=== PATIENT | male | born 1990 | race Hispanic/Latino ===

== ENCOUNTER 2020-01-11 21:14 | Emergency (ER) | payer SELFPAY ==
--- NOTE | 2020-01-11 21:59 | RAD ---
EXAM: 3 views of the right wrist HISTORY: Wrist pain COMPARISON: None FINDINGS: 3 views of the right wrist shows an intra-articular comminuted fracture of the distal radiu s. There is an associated ulnar styloid process fracture. No dislocation is appreciated. An overlying splint obscures fine bony and soft tissue detail. Moderate diffuse soft tissue swelling is seen. No degenerative changes are present. IMPRESSION: Distal radius and associated ulnar styloid process fractures
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
== END 2020-01-11 23:20 | disposition home or self-care (01) ==
LOC: ERS 21:14
DX: S52.571A Other intraarticular fracture of lower end of right radius, initial encounter for closed fracture (principal); S52.611A Displaced fracture of right ulna styloid process, initial encounter for closed fracture; S40.211A Abrasion of right shoulder, initial encounter; V86.59XA Driver of other special all-terrain or other off-road motor vehicle injured in nontraffic accident, initial encounter

== ENCOUNTER 2020-04-05 07:29 | Outpatient (CLI) | payer OTHER ==
[2020-04-05 17:29] LABS: #Basophils 0.1 10x3/uL (0.0-0.2); #Eosinphils 0.2 10x3/uL (0.0-0.5); #Monocytes 0.7 10x3/uL (0.0-1.1); #Neutrophils 5.5 10x3/uL (1.5-8.4); %Basophils 0.8 % (0.0-2.0); %Eosinophils 2.1 % (0.0-6.0); %Lymphocytes 37.5 % (18.0-47.0); %Monocytes 6.5 % (0.0-10.0); %Neutrophils 52.7 % (40.0-75.0); Hemoglobin 15.7 g/dL (14.0-18.0); Mean Corpuscular Hemoglobin 30.9 PG (27.0-33.0); Mean Corpuscular Volume 88.4 fl (80.0-100.0); Mean Platelet Volume 9.3 fl (7.4-10.4); Platelet Count 320 10x3/uL (130-400); RBC Distribution Width 11.6 % (11.5-14.5); Red Blood Cell (RBC) Count 5.08 10x6/uL (4.40-5.80); White Blood Cell (WBC) Count 10.3 10x3/uL (4.5-11.0)
[2020-04-06 13:01] LABS: SARS-CoV-2 MS2 Positive; SARS-CoV-2 N Gene Negative; SARS-CoV-2 S Gene Negative; SARS-CoV-2 by NAA Not Detected (NotDetected); SARS-CoV-2 orf1ab Negative
== END 2020-04-05 07:30 | disposition home or self-care (01) ==
LOC: LABBT 07:29
PROVIDERS: ATTEND Orthopaedic Surgery Hand Surgery
DX: Z01.812 Encounter for preprocedural laboratory examination (principal); Z20.828 Contact with and (suspected) exposure to other viral communicable diseases; S52.611K Displaced fracture of right ulna styloid process, subsequent encounter for closed fracture with nonunion
CPT/HCPCS: 85025; 87635; U0003

== ENCOUNTER 2020-04-08 08:08 | Day surgery (SDC) | payer OTHER ==
[2020-04-07 09:46] VITALS: BMI 22.1
[2020-04-08] MEDS ORDERED: Sodium Chloride 0.9% 10 ML ONE (09:28)
[2020-04-08] MEDS ORDERED: Bacitracin Zinc Ointment 30 gm TUBE ONE (09:28)
[2020-04-08] MEDS ORDERED: EPINEPHrine 1 MG/ML AMP ONE (09:28)
[2020-04-08] MEDS ORDERED: HYDROmorphone 0.5 MG/0.5 ML SYRINGE ONE (10:01)
[2020-04-08] MEDS ORDERED: Fentanyl 100 MCG/2 ML VIAL ONE ×2 (10:01→17:39)
[2020-04-08] MEDS ORDERED: Dexmedetomidine 200 MCG/2 ML VIAL ONE (10:02)
[2020-04-08] MEDS ORDERED: Ondansetron PF 4 MG/2 ML Vial ONE (12:09)
[2020-04-08] MEDS ORDERED: PROPOFOL 200 MG/20 ML VIAL ONE (12:09)
[2020-04-08] MEDS ORDERED: Dexamethasone 20 MG/5 ML VIAL ONE (12:09)
[2020-04-08] MEDS ORDERED: Lidocaine 1% PF 5 ML VIAL ONE (12:09)
[2020-04-08] MEDS ORDERED: Ketorolac Tromethamine 30 MG/ML VIAL ONE ×2 (12:09→17:39)
[2020-04-08] MEDS ORDERED: CEFAZOLIN 1 GM VIAL ONE (14:32)
--- NOTE | 2020-04-08 16:06 | RAD ---
3 FLUOROSCOPIC SPOT IMAGES OF RIGHT WRIST: Date: 04/08/2020 HISTORY: Fluoroscopy during surgery. COMPARISON: Right wrist radiograph dated 01/11/2020. FINDINGS: There is diffuse osteopenia involving the right wrist. There are surgical pins and screws fixating pa tient's DRUJ dislocation and radial styloid fractures. Ulnar styloid process fracture has improved al ignment. TOTAL FLUORSCOPIC TIME: 94.3 seconds. TOTAL EXPOSURE: 1.59 milligray. IMPRESSION: Intraoperative C-arm images. POS: BH
[2020-04-08] MEDS ORDERED: HYDROcodone/Acetaminophen 5/325 mg Tablet ONE (17:37)
--- NOTE | 2020-04-11 08:06 | OP ---
DATE OF PROCEDURE: 04/08/2020 PREOPERATIVE DIAGNOSES: 1. Right wrist synovitis. 2. 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 3. 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 PROCEDURE PERFORMED: 1. Right wrist arthroscopic synovectomy. 2. Open reduction and fixation of radial styloid fracture malunion. 3. Flexor carpi radialis tendon for Shirley anatomic reconstruction, distal radioulnar joint ligaments. 4. Open reduction with fixation using the Shirley technique, dislocated distal radioulnar joint. 5. C-arm supervision. TOURNIQUET TIME: 119 minutes, elevated down 60 minutes and up for 84 minutes. ESTIMATED BLOOD LOSS: 200 mL. ANESTHESIA: Local injection, yes. 40 mL of 0.5% Marcaine used in becky-incisional technique. No epinephrine. INDICATIONS FOR PROCEDURE: The patient had a fracture with wrist pain and progressive loss of rotation for approximately 2 months when he came to clinic. It was clear that he had bone fragment on CT scan with articular surface displaced palmarly and that his ulna had a palmar position of almost 75% to 80% subluxed and completely dislocated. Both will need to be corrected. DESCRIPTION OF PROCEDURE: After successful general endotracheal anesthesia, the limb was prepped and draped. We then placed a standard in-line traction with the 2 finger traps for wrist arthroscopy. We established the 3, 4, 6U, and 6R portals. The Panoramic view revealed that the patient had several marked synovitis. We then debrided. Next, the proximal row articular surface with the radius, triquetrum lunate, and scaphoid were all intact with no chondral lesions and no evidence of interosseous ligament tear. There was a 1 mm fracture line that had filled in with new bone between the radial styloid and complex. Then, there was another fracture line obliquely that had healed along the complex and dorsal palmar edge, but it was not and no step-offs. Then, we noticed the patient's triangular fibrocartilage on radial side was nearly completely torn with a large tear, especially on the dorsal one-half. Since we know he did not have rotation, he had stable subluxation, it was decided that his palmar piece of bone would need to be replaced in the palmar aspect of the radial styloid and that we would need to reduce and possibly reconstruct distal ulnar joint. We removed the tourniquet. We then made a palmar incision to harvest a piece of bone, which had articular surface on it using the standard approach to distal radius fracture in the FCR and the radial artery. Here, we extended this somewhat because we knew the patient did not have palmaris and might need two-thirds FCR tendon for reconstruction later. Once we had into the capsule reflection on both radial aspects, we saw where the chondral surface fit. It was about 1 mm depressed, but we were able to get the chondral surface back aligned without step-off. We debrided the area where the fracture came from as well as the fracture is, felt it was alive enough to be replaced since it occupied almost 1 cm x 5 mm of chondral bone with enough subcondylar bone for fixation. K-wire and a cannulated 2.4 screw were then used over guidewire to give us the reduction. At this point, we then made our dorsal approach. We then attempted to reduce the palmar dislocation. Th palmar dislocation on the palmar side, we were able to loosen the distal radioulnar joint just enough to almost achieve reduction. At this point, we made a very large dorsal incision, exposed the entire distal radioulnar joint to include interosseous membrane, began using blunt dissection and including visualizing the TFCC area through the wrist and opening up the fifth dorsal compartment. We could now see the entire distal radioulnar joint from either palmar or dorsal aspect. We then used a guidewire, placed approximately 7 mm from the radial to the distal radioulnar joint and approximately 7 mm below the articular surface. Then, with the guidewire in place, radiographs confirmed its position. Radiographs also confirmed clinically that we could see we could now have loosened enough tissue, we could reduce the ulna back to distal radius nearly anatomic. Once this was done, we then drilled over this wire, put first a 2.7 drill and then a 3.5 drill bit. At this point, we then removed this, placed the arm back up in traction, and dissected the same incision more ulnarly until we could see the entire shaft. We passed a guidewire from approximately 2 cm distal to the articular surface of the ulna and central to radial one-third of the ulnar surface. We confirmed this on radiographs and clinically and drilled this. We made a 3.5 tunnel as well, but we made both ends slightly bigger since we had to pass 2 tendons here. The patient then had the whole position confirmed on a chondral edge under the remnant of the old TFC. The joint could be reduced. We now used a 22-gauge wires as a graft leader to pass the two-thirds of the flexor carpi radialis through the radius dorsally to palmarly, dissected underneath the vascular bundle, visualized the palmar ulnocarpal joint and then passed the flexor carpi radialis with a heavy Prolene suture on it. The dorsal end and the palmar end were now dorsal. Both had heavy suture on it. We used the same suture Lasso to grab the sutures and pull them into the ulnar tunnel and out the ulnar tunnel. Once this was done, we reduced it nearly anatomic on frontal and sagittal views, and then pinned this with a heavy 0.625 K-wire at a point just distal to the tunnel. The tunnel egressed at the distal ulna. The dorsal end was slightly longer than the palmar end, so we were able to pass this all the way around onto the vascular bundles and as identified, before we tied it, we released the tourniquet. We then tied this onto itself and then used a large anchor to then tie the knot to the anchor and for double support as we had excellent tension in this whole construct. At this point, tourniquet was deflated. We obtained hemostasis. We then closed the joint capsule. There was a small portion of the triangular fibrocartilage tear that could be repaired and this was done only about 5 mm. Then, the capsule was closed with a 2-0 Vicryl. This was done on the dorsal aspect. There was closure of the subcutaneous skin with a running 4-0 Monocryl and the skin was reapproximated with 4-0 nylon on the dorsal aspect. The retinaculum was closed over a 6 mm area dorsally. On the palmar aspect, we obtained hemostasis and closed the pronator quadratus with interrupted 0 Vicryl mattress in a [id number] pattern, closed subcutaneous tissue with a running 4-0 Monocryl and skin with 4-0 nylon in interrupted mattress pattern. The patient left the operating room without evidence of anesthetic or operative complication in a sugar-tong splint and neutral rotation. The wire was cut to 0.2 mm protruding for later recovery. Job ID: [id number]
== END 2020-04-08 19:50 | disposition home or self-care (01) ==
LOC: SDC 08:08
PROVIDERS: ATTEND Orthopaedic Surgery Hand Surgery
PROC: 0PUH07Z Supplement Right Radius with Autologous Tissue Substitute, Open Approach (ICD-10-PCS; principal; 2020-04-08)
PROC: 0LM70ZZ Reattachment of Right Hand Tendon, Open Approach (ICD-10-PCS; principal; 2020-04-08)
PROC: 0PSH04Z Reposition Right Radius with Internal Fixation Device, Open Approach (ICD-10-PCS; principal; 2020-04-08)
DX: S52.511P Displaced fracture of right radial styloid process, subsequent encounter for closed fracture with malunion (principal); M94.28 Chondromalacia, other site; M65.88 Other synovitis and tenosynovitis, other site; Z87.891 Personal history of nicotine dependence; V69.9XXA Occupant (driver) (passenger) of heavy transport vehicle injured in unspecified traffic accident, initial encounter; Y99.0 Civilian activity done for income or pay
CPT/HCPCS: 76000; C1713; J0171; J0690; J1100; J1170; J1885; J2405; J2704; J3010; J3490